=== PATIENT | female | born 1950 | race Hispanic/Latino ===

== ENCOUNTER 2022-04-24 19:44 | Observation (INO) | payer OTHER ==
[2022-04-24 20:48] LABS: #Eosinphils 0.2 10x3/uL (0.0-0.5); #Monocytes 0.6 10x3/uL (0.0-1.1); #Neutrophils 7.3 10x3/uL (1.5-8.4); %Basophils 0.4 % (0.0-2.0); %Eosinophils 1.9 % (0.0-6.0); %Lymphocytes 19.1 % (18.0-47.0); %Monocytes 6.3 % (0.0-10.0); %Neutrophils 72.1 % (40.0-75.0); Hemoglobin 14.3 g/dL (12.0-15.5); Mean Corpuscular HGB CONC 34.6 g/dL (32.0-36.0); Mean Corpuscular Volume 86.6 fl (81.6-98.3); Platelet Count 355 10x3/uL (150-450); RBC Distribution Width 12.4 % (11.5-14.5); Red Blood Cell (RBC) Count 4.77 10x6/uL (3.90-5.03); White Blood Cell (WBC) Count 10.1 10x3/uL (3.5-10.5)
[2022-04-24 20:58] LABS: ALT (SGPT) 19 U/L (8-55); AST (SGOT) 26 U/L (5-34); Albumin 4.6 g/dL (3.4-4.8); Alkaline Phosphatase 72 U/L (40-110); Anion Gap 15 mmol/L (10-20); BUN (Urea Nitrogen) 20 mg/dL (9.8-20.1); Bilirubin, Total 0.5 mg/dL (0.2-1.2); Calc. Creatinine Clearance 0 mL/min (70-130); Calcium 9.8 mg/dL (7.8-10.44); Carbon Dioxide 20 mmol/L (23-31); Chloride 105 mmol/L (98-107); Estimated GFR 76; Globulin 3.1 g/dL (2.4-3.5); Glucose 120 mg/dL (80-115); Lipase 50 U/L (8-78); Potassium 4.3 mmol/L (3.5-5.1); Protein, Total 7.7 g/dL (5.8-8.1); Sodium 136 mmol/L (136-145)
[2022-04-24] MEDS ORDERED: Aspirin 325 MG TAB ONE (21:18)
[2022-04-24 21:23] LABS: Bilirubin Neg (Negative); Blood, Urine Negative (Negative); Clarity Clear (Clear); Glucose, Urine (Dipstick) Normal (Negative); Ketone, Urine Negative (Negative); Leukocyte 25 (Negative); Nitrite Negative (Negative); Protein, Urine (Dipstick) Negative (Neg-Trace); Urobilinogen Normal mg/dL (Less than 2)
[2022-04-24 21:27] LABS: SARS-CoV-2 NAA Rapid Test Not Detected (NotDetected)
[2022-04-24 21:30] LABS: Bacteria/HPF Rare-Few HPF (None Seen); Mucous/LPF None Seen LPF (<2+); RBC/HPF None Seen HPF (0-3); Squamous Epithelial 0-3 HPF (0-3); WBC/HPF 0-3 HPF (0-3)
[2022-04-24] MEDS ORDERED: Guaifenesin DM 100-10/5 ML UDCUP PO PRN (22:50)
[2022-04-24] MEDS ORDERED: Zolpidem Tartrate 5 MG TAB PO PRN (22:50)
[2022-04-24] MEDS ORDERED: Senokot S 8.6-50 MG TAB PO PRN (22:50)
[2022-04-24] MEDS ORDERED: Ondansetron PF 4 MG/2 ML Vial IVP PRN (22:50)
[2022-04-24] MEDS ORDERED: Calcium Carbonate 500 MG ChewTAB PO PRN (22:50)
[2022-04-24] MEDS ORDERED: Acetaminophen 325 MG TAB PO PRN (22:50)
[2022-04-24 23:30] VITALS: BMI 22.4
[2022-04-24] MEDS ORDERED: Lidocaine 2% Viscous Solution 10 ML, Aluminum & Magnesium Hydroxide 30 ML SSW SCH (23:59)
[2022-04-24] MEDS ORDERED: Lactated Ringer's 500 ML IV SCH (23:59)
[2022-04-25] MEDS: Carvedilol 3.125 MG TAB PO SCH ×2 (00:09→00:18)
[2022-04-25] MEDS ORDERED: FLU VACC QS2022-23(65YR UP)/PF 240 MCG/0.7 ML SYRINGE IM ONE (04:45)
[2022-04-25] MEDS ORDERED: Levothyroxine Sodium 50 MCG TAB PO SCH (06:00)
[2022-04-25 06:15] LABS: Anion Gap 11 mmol/L (10-20); BUN (Urea Nitrogen) 15 mg/dL (9.8-20.1); Calc. Creatinine Clearance 73 mL/min (70-130); Calcium 9.3 mg/dL (7.8-10.44); Carbon Dioxide 27 mmol/L (23-31); Cardiac Risk 6.1 (Less than 4.5); Chloride 107 mmol/L (98-107); Cholesterol 207 mg/dl (< 200 Desired); Estimated GFR 94; Glucose 87 mg/dL (80-115); HDL Cholesterol 34 mg/dL (>60 Neg Risk); LDL Cholesterol, Calculated 134 mg/dL; Potassium 4.3 mmol/L (3.5-5.1); Sodium 141 mmol/L (136-145); Triglycerides 194 mg/dL (Less than 150)
[2022-04-25] MEDS ORDERED: Carvedilol 6.25 MG TAB PO SCH (08:00)
[2022-04-25] MEDS ORDERED: Famotidine 20 MG TAB PO SCH (09:00)
[2022-04-25] MEDS ORDERED: Lisinopril 20 MG TAB PO SCH (09:00)
[2022-04-25 12:59] LABS: Hemoglobin A1c 5.3 % (4.0-6.0)
[2022-04-25 14:11] VITALS: BP 121/62; TEMP 97.7
== END 2022-04-25 13:02 | disposition home or self-care (01) ==
LOC: CSHERS 19:44 → CSHTELE 22:32
PROVIDERS: ADMIT Student in an Organized Health Care Education/Training Program; ATTEND Internal Medicine
DX: R07.9 Chest pain, unspecified (principal); R10.13 Epigastric pain; R68.84 Jaw pain; I10 Essential (primary) hypertension; E03.9 Hypothyroidism, unspecified; Z79.899 Other long term (current) drug therapy; Z20.822 Contact with and (suspected) exposure to COVID-19; N19 Unspecified kidney failure
CPT/HCPCS: 71045; 76705; 80048; 80053; 80061; 81003; 81015; 83036; 83690; 83880; 84484; 85025; 93005; G0378; J1650; J7120; U0002

== ENCOUNTER 2024-05-28 07:17 | Emergency (ER) | payer OTHER, SELFPAY ==
[2024-05-28] MEDS ORDERED: Acetaminophen 325 MG TAB ONE (07:49)
[2024-05-28 08:30] LABS: Hematocrit 43.8 % (34.9-44.5); Hemoglobin 14.2 g/dL (12.0-15.5); Mean Corpuscular HGB CONC 32.4 g/dL (32.0-36.0); Mean Corpuscular Hemoglobin 28.9 pg (27.0-33.0); Mean Platelet Volume 9.5 fL (7.4-10.4); Platelet Count 227 10x3/uL (150-450); RBC Distribution Width 12.8 % (11.5-14.5); Red Blood Cell (RBC) Count 4.92 10x6/uL (3.90-5.03)
[2024-05-28 08:36] LABS: ALT (SGPT) 36 U/L (Less than 34); AST (SGOT) 42 U/L (11-34); Albumin 3.8 g/dL (3.1-4.5); Alkaline Phosphatase 78 U/L (40-110); Anion Gap 12 mmol/L (10-20); BUN (Urea Nitrogen) 15 mg/dL (9.8-20.1); Bilirubin, Total 0.5 mg/dL (0.3-1.2); Calc. Creatinine Clearance 0 mL/min (70-130); Calcium 8.9 mg/dL (7.8-10.44); Carbon Dioxide 23 mmol/L (23-31); Chloride 105 mmol/L (98-107); Estimated GFR 94; Globulin 3.6 g/dL (2.4-3.5); Glucose 91 mg/dL (83-110); Potassium 4.2 mmol/L (3.5-5.1); Protein, Total 7.4 g/dL (5.8-8.1); Sodium 136 mmol/L (136-145)
[2024-05-28 09:12] LABS: Band 3 % (5-11); Lymphocytes 55 % (21-51); MDiff Complete? YES; Macrocytosis SLIGHT = 6-15 cells (100X) (0-5/hpf); Monocytes 8 % (0-10); Neutrophil 34 % (42-75); Platelet Adequacy Comment Appears Adequate
[2024-05-28 09:57] LABS: Bilirubin Neg (Negative); Blood, Urine 25 (Negative); Clarity Clear (Clear); Glucose, Urine (Dipstick) Normal (Negative); Ketone, Urine Negative (Negative); Leukocyte Negative (Negative); Nitrite Negative (Negative); Protein, Urine (Dipstick) 30 mg/dl (Neg-Trace); Urobilinogen Normal mg/dL (Less than 2)
[2024-05-28 10:25] LABS: Bacteria/HPF 1+ HPF (None Seen); CAUTI Indications for Culture Pelvic or flank pain; RBC/HPF 0-3 HPF (0-3); Yeast-Budding Rare HPF (None Seen)
[2024-05-28 10:27] LABS: Urine Culture Reflex No No
== END 2024-05-28 10:49 | disposition home or self-care (01) ==
LOC: CSHERS 07:17 → EEVIPCON 07:17 → CSHERS 10:49
DX: R55 Syncope and collapse (principal); E86.0 Dehydration; I10 Essential (primary) hypertension
CPT/HCPCS: 70450; 80053; 81001; 85025; 93005